=== PATIENT | female | born 1960 | race African-American/Black ===

== ENCOUNTER 2018-04-06 11:39 | Emergency (ER) | payer OTHER ==
[~2018-04-06] VITALS: Ht 172.7 cm; Wt 99.8 kg
--- NOTE | ~2018-04-06 | EKG ---
[address] [address] ELECTROCARDIOGRAM REPORT Name: ARCHANANATEALMITANahomi Comer Room #: DEP [facility]#: [id number] Admission: 04/06/18 Attend Phys: Discharge: 04/06/18 Date of : 62 Report #: [id number] THIS REPORT FOR: //name// [facility] ED Test Date: 2018-04-06 Test Time: 12:21:07 Pat Name: ROSANNA MAGAÑA Department: Room: Gender: F Trigonometry Tutor: SALOMÓN : 1960 Requested By: Filemon Cam Order Number: [id number] MD: Dayne Mckee Measurements Intervals [place] Rate: 62 P: 16 MD: 173 QRS: -13 QRSD: 102 T: 11 QT: 394 QTc: 400 Interpretive Statements Sinus rhythm Left ventricular hypertrophy Compared to ECG 01/06/2008 07:14:13 Left ventricular hypertrophy now present Sinus bradycardia no longer present Sinus arrhythmia no longer present ST (T wave) deviation no longer present Electronically Signed On 04-06-2018 17:03:19 CDT by Dayne Mckee [email or web address] <ELECTRONICALLY SIGNED> By: Dayne Mckee MD 04/06/18 1703 1221 1221 Dayne Mckee MD /EPI
[2018-04-06] MEDS ORDERED: LISINOPRIL-HCT1 EAC1 PO (11:47)
[2018-04-06] MEDS ORDERED: ATORVASTATIN CA40 MG PO (11:47)
[2018-04-06] MEDS ORDERED: COREG6.25 MG PO (11:47)
[2018-04-06] MEDS ORDERED: OXYCODONE HCL15 MG PO (11:48)
[2018-04-06 12:43] LABS: ABSOLUTE NEUTROPHILS 4.6 thou/uL (1.4-8.2); EOSINOPHILS 2.1 % (0.0-3.0); HEMATOCRIT 36.6 % (37.0-47.0); HEMOGLOBIN 11.6 gm/dL (12.0-15.0); LYMPHOCYTES 21.1 % (24.0-44.0); MCH 27.2 pg (26.0-34.0); MCHC 31.6 g/dL (28.0-37.0); MCV 86.1 fL (80.0-100.0); MONOCYTES 6.2 % (1.0-8.0); PLATELET COUNT 357 thou/uL (150-400); POLYS 69.6 % (36.0-66.0); RBC 4.25 mil/uL (4.20-5.00); RDW 16.9 % (10.5-14.5); WBC 6.6 thou/uL (4.0-11.0)
[2018-04-06 12:49] LABS: ANION GAP 7 mmol/L (7-16); BUN 5 mg/dL (7-18); CALCIUM 9.7 mg/dL (8.5-10.1); CHLORIDE 101 mmol/L (98-107); CO2 32 mmol/L (21-32); CREATININE 0.9 mg/dL (0.6-1.0); GLUCOSE 97 mg/dL (74-106); POTASSIUM 3.1 mmol/L (3.5-5.1); SODIUM 140 mmol/L (136-145)
[2018-04-06 12:57] LABS: TROPONIN-I <0.06 ng/mL (<0.06)
[2018-04-06] MEDS ORDERED: MOBIC15 MG PO (14:05)
[2018-04-06 14:25] VITALS: BP 141/77
== END 2018-04-06 14:25 | disposition home or self-care (01) ==
LOC: ER 11:39
PROVIDERS: Physician Assistant
DX: R09.1 Pleurisy (principal); M54.6 Pain in thoracic spine; I10 Essential (primary) hypertension; Z87.891 Personal history of nicotine dependence; Z96.653 Presence of artificial knee joint, bilateral

== ENCOUNTER 2021-07-26 11:45 | Inpatient (IN) | payer OTHER ==
[~2021-07-26] VITALS: Ht 172.7 cm; Wt 108.9 kg
[~2021-07-26 11:45] MED LIST: ATORVASTATIN CA40 MG PO; COREG6.25 MG PO; LISINOPRIL-HCT1 EAC1 PO; MOBIC15 MG PO; OXYCODONE HCL15 MG PO
[2021-07-26 14:13] LABS: ABSOLUTE NEUTROPHILS 9.7 thou/uL (1.4-8.2); BASOPHILS 0.4 % (0.0-2.0); EOSINOPHILS 0.4 % (0.0-3.0); HEMATOCRIT 38.5 % (37.0-47.0); HEMOGLOBIN 11.9 gm/dL (12.0-15.0); LYMPHOCYTES 8.3 % (24.0-44.0); MCH 25.4 pg (26.0-34.0); MCHC 30.9 g/dL (28.0-37.0); MCV 82.2 fL (80.0-100.0); MONOCYTES 4.6 % (1.0-8.0); PLATELET COUNT 262 thou/uL (150-400); POLYS 86.3 % (36.0-66.0); RBC 4.68 mil/uL (4.20-5.00); RDW 17.1 % (10.5-14.5); WBC 11.2 thou/uL (4.0-11.0)
[2021-07-26 14:25] LABS: CALCIUM 9.4 mg/dL (8.5-10.1); CREATININE 0.9 mg/dL (0.6-1.0); POTASSIUM 3.2 mmol/L (3.5-5.1)
[2021-07-26 14:32] LABS: ALBUMIN 3.5 g/dL (3.4-5.0); TOTAL BILIRUBIN 0.1 mg/dL (0.2-1.0); TOTAL PROTEIN 8.4 g/dL (6.4-8.2)
[2021-07-26] MEDS ORDERED: BACLOFEN 10MG T10 MG PO (14:34)
[2021-07-26] MEDS ORDERED: ROXICODONE15 MG PO (14:34)
[2021-07-26] MEDS ORDERED: MELOXICAM7.5 MG PO (14:34)
[2021-07-26] MEDS ORDERED: LIPITOR 40 MG T40 M1 PO (14:34)
[2021-07-26] MEDS ORDERED: MELOXICAM15 MG PO (14:35)
[2021-07-26] MEDS ORDERED: VAZALORE81 MG PO (14:36)
[2021-07-26 15:01] VITALS: BP 115/67
[2021-07-26 15:21] VITALS: BP 112/67
[2021-07-26 15:48] VITALS: BP 112/73
--- NOTE | 2021-07-26 17:01 | NUR ---
ASSUMED PT CARE FROM ED AT 1540. PT IS ALERT & ORIENTED X4. PT HAS IV SITE ON LFA SALINE LOCKED. PT IS ON ROOM AIR. PER DR BOURGEOIS PT WILL HAVE SURGERY TOMORROW AT 1700 AND WILL BE NPO AFTER MIDNIGHT. PLACED EXTERNAL CATH PUREWICK THIS AFTERNOON. FINISHED ADMISSION. WILL CONTINUE TO MONITOR PT. FOLLOW POC.
[2021-07-26 19:40] VITALS: BP 91/63
[2021-07-27] VITALS (7 sets, daily range): BP systolic 80–111; BP diastolic 41–62
[2021-07-27 06:12] LABS: MCH 26.2 pg (26.0-34.0); MCHC 31.3 g/dL (28.0-37.0); MCV 83.8 fL (80.0-100.0); RBC 3.7 mil/uL (4.20-5.00); RDW 17.1 % (10.5-14.5); WBC 5.7 thou/uL (4.0-11.0)
[2021-07-27 06:18] LABS: HEMOGLOBIN 9.7 gm/dL (12.0-15.0)
[2021-07-27 06:24] LABS: CALCIUM 8.4 mg/dL (8.5-10.1)
[2021-07-27 06:26] LABS: POTASSIUM 4.7 mmol/L (3.5-5.1)
[2021-07-27 06:30] LABS: CREATININE 2.2 mg/dL (0.6-1.0)
--- NOTE | 2021-07-27 06:45 | NUR ---
PT BEEN RESTING IN NO ACUTE DISTRESS.A/OX4.LEFT KNEE BRACE IN PLACE.ASSIST TO BSC.VSS,B/P BEEN SOFT,[employer] WAS NOTIFIED,N/O FOR IVF GIVEN.REPLACED POTASSIUM PER ORDERS.PAIN MEDSX1 FOR KNEE PAIN.CRITICAL LABS RESULT CALLED IN TO [employer]IVER.SEE THE ORDERS.NPO SINCE MIDNOC.PLANNED FOR SURGERY TODAY IN THE AFTERNOON.
--- NOTE | 2021-07-27 13:55 | NUR ---
PLACING PATIENT ON HOLD, GOING FOR SURGERY. WILL NEED NEW ORDERS POST-OP TO INITIATE OT EVAL.
--- NOTE | 2021-07-27 15:41 | NUR ---
met with patient who resides at home with her mother who has dementia. While patient in hosp she has a caregiver at home for her. Patient is on disability. she has back problems. She has HCBS 3 hours a day, 7 days a week. She plans to increase the time and will discuss with her caregiver. She has never rec home health in past. She has had bilateral knee sx in past. Patient has walker at home. All needs on one level at home. She plans to purchase a bed side commode. Her brother can assist with driving [place] [facility] plan sx. Therapy evals in process. Patient has medicare part A only and [place] medicaid secondary. If need for home health will need to inquire into coverage.
--- NOTE | 2021-07-27 20:30 | NUR ---
Pt. arrived to the unit from PACU accompanied by staff. She is drowsy and VSS. Dressing to right knee is dry and intact. Knee immobilizer is in place.
[2021-07-28 00:48] VITALS: BP 97/45
--- NOTE | 2021-07-28 06:15 | NUR ---
Pt. rested quietly during the night when checked on during frequent rounds. Ivp morphine given for left knee pain (see emar) with relief noted. No c/o nausea and tolerated a regular diet. Bed alarm is on.
[2021-07-28 08:00] VITALS: BP 114/75
[2021-07-28 09:00] VITALS: BP 114/71
--- NOTE | 2021-07-28 12:20 | NUR ---
5N consult for patient to determine if candidate for acute rehab. Discussed HH care with patient. She has H[facility] with [facility] Sp with [facility] office who does not have opening for home health care in her area. [facility] with no preference for [facility]
[2021-07-28 20:42] VITALS: BP 123/64
--- NOTE | 2021-07-29 03:43 | NUR ---
Pt. rested quietly at intervals during the night when checked on during frequent rounds. She was given pain meds for c/o pain in left leg (see emar) with some relief noted. Up to the bedsid comode with assistance of one. Left knee immobilizer in place. Bed alarm is on.
[2021-07-29 07:25] VITALS: BP 130/80
[2021-07-29 08:00] VITALS: BP 130/80
--- NOTE | 2021-07-29 16:19 | NUR ---
Patient reports she has arranged more home care for her mother. She wants to dc to acute rehab. 5N accepting. plan dc today.
[2021-07-29 18:37] VITALS: BP 130/80
[2021-07-30] MEDS ORDERED: ULTRA-LIGHT RO1 EACH (12:06)
== END 2021-07-29 18:21 | DRG 480 ==
LOC: ER 11:45 → 4S 15:13 → EROBS 15:13 → 4S 15:22
PROVIDERS: Physician Assistant; ADMIT Hospitalist; ATTEND Hospitalist
PROC: 2W3RX1Z Immobilization of Left Lower Leg using Splint (ICD-10-PCS; principal; 2021-07-26)
PROC: 0QSC04Z Reposition Left Lower Femur with Internal Fixation Device, Open Approach (ICD-10-PCS; 2021-07-27)
DX: S72.492A Other fracture of lower end of left femur, initial encounter for closed fracture (principal); R65.11 Systemic inflammatory response syndrome (SIRS) of non-infectious origin with acute organ dysfunction; M97.02XA Periprosthetic fracture around internal prosthetic left hip joint, initial encounter; N17.9 Acute kidney failure, unspecified; D62 Acute posthemorrhagic anemia; Z96.653 Presence of artificial knee joint, bilateral; G89.29 Other chronic pain; M54.9 Dorsalgia, unspecified; E66.01 Morbid (severe) obesity due to excess calories; I10 Essential (primary) hypertension; M19.90 Unspecified osteoarthritis, unspecified site; E78.5 Hyperlipidemia, unspecified; K59.00 Constipation, unspecified; Z20.822 Contact with and (suspected) exposure to COVID-19; Z28.21 Immunization not carried out because of patient refusal; W01.0XXA Fall on same level from slipping, tripping and stumbling without subsequent striking against object, initial encounter; Z87.891 Personal history of nicotine dependence; Z68.36 Body mass index [BMI] 36.0-36.9, adult; Z79.82 Long term (current) use of aspirin; Z79.899 Other long term (current) drug therapy; Y93.29 Activity, other involving ice and snow; Y92.098 Other place in other non-institutional residence as the place of occurrence of the external cause; Y99.8 Other external cause status
CPT/HCPCS: 10195; 50010; 50101; 50386; 50403; 51412; 56524; 56526; 56527; 56528; 57506; 57507; 57980; 59034; 59037; 59038; 59156; 62110; 62900; 70005

== ENCOUNTER 2021-07-29 16:11 | Inpatient (IN) | payer OTHER ==
[~2021-07-29] VITALS: Ht 172.7 cm; Wt 109.8 kg
[~2021-07-29 16:11] MED LIST changes: +BACLOFEN 10MG T10 MG PO; +LIPITOR 40 MG T40 M1 PO; +MELOXICAM15 MG PO; +MELOXICAM7.5 MG PO; +ROXICODONE15 MG PO; +VAZALORE81 MG PO
--- NOTE | 2021-07-29 18:30 | NUR ---
PT ARRIVED VIA BED TO ROOM. PT ALERT AND ORIENTED X4. PT HAS LEFT LEG IMMOBILIZER DUE TO A FX LEFT FEMUR FROM A FALL. PT HAS ICE PACK TO LEFT KNEE, PT HAS LEFT LEG ELEVATED UP ON A PILLOW. PT ON ROOM AIR. PT HAS CALL LIGHT IN REACH. PT REQUESTED ANOTHER PILLOW FOR HER BACK, PT HAS CHRONIC BACK PAIN. PT HAS BEEN REFUSING COREG STATED SHE HAS NOT TAKEN FOR 3 YEARS, PT ALSO REFUSING ACCUCHECKS DUE TO NOT BEING A DIABETIC.
[2021-07-29 19:56] VITALS: BP 127/65
--- NOTE | 2021-07-30 03:25 | NUR ---
ASSUMED CARE AT 1915 OF 07/29. PATIENT IS A&OX4, AND ABLE TO MAKE NEEDS KNOWN. ADMISSION ASSEMENT PERFORMED THIS SHIFT. PATIENT REPORTS PAIN IN LLE, DRESSING TO LLE IS WRAPPED WITH ANTWAN WRAP, WHICH REMAINS CDI. LEFT KNEE IS ALSO IN AN IMMOBILIZER. REMAINS NON-WEIGHT BEARING ON LLE. BLE EDEMA PRESENT, ENCOURAGED TO KEEP LOWER EXTREMITIES ELEVATED WHILE IN BED. MINIMAL ASSIST WITH TRANSFER TO [facility] TO VOID, USING GB AND WALKER. MOVEMENT AND WARMTH PRESENT IN LEFT FOOT AND TOES, AND PATIENT REPORTS PRESENCE OF SENSATION REMAINS INTACT WELL. PRN PAIN MEDICATION AND ICE PACK PROVIDED TO MANAGE PAIN IN LLE, WITH REPORTED EFFECTIVENESS. RIGHT PIV IS SALINE LOCKED, NO S/S OF INFECTION NOTED. PATIENT WAS ORIENTED TO THE UNIT AND ROOM, ADMISSION PACKET PROVIDED, CONSENT FORMS SIGNED. PATIENT EXPRESSED UNDERSTANDING OF INFORMATION PROVIDED. FALL PRECAUTIONS IN PLACE, CALL LIGHT WITHIN REACH. WILL CONTINUE TO MONITOR.
[2021-07-30 05:47] LABS: HEMATOCRIT 24.5 % (37.0-47.0); MCH 26.2 pg (26.0-34.0); MCV 84.4 fL (80.0-100.0); RBC 2.9 mil/uL (4.20-5.00); RDW 16.8 % (10.5-14.5); WBC 7.5 thou/uL (4.0-11.0)
[2021-07-30 06:02] LABS: HEMOGLOBIN 7.6 gm/dL (12.0-15.0)
[2021-07-30 06:23] LABS: CALCIUM 8.2 mg/dL (8.5-10.1); POTASSIUM 3.4 mmol/L (3.5-5.1)
[2021-07-30 06:26] LABS: CREATININE 0.8 mg/dL (0.6-1.0)
[2021-07-30 06:44] LABS: FOLIC ACID 14.9 ng/mL (8.6-58.9)
[2021-07-30 08:00] VITALS: BP 125/72
--- NOTE | 2021-07-30 09:17 | NUR ---
Pt is new admit to rehab s/p L femur fx with IM nailing on 07/27. No c/o sig weight changes or change in appetite [employer] CAREGIVER. Obese class II with BMI 36.7. She is on a regular diet with no c/o chewing/swallowing issues. Intakes have been good >75% at meals. Meds reviewed and include FeSO4, statin, laxative, HCTZ. Labs reviewed K3.4, Hgb 7.6, Vit D and A1c pending. No hx DMII. Plan is for ~1 week on rehab, then d/c home with HH. Presents low nutrition risk.
--- NOTE | 2021-07-30 09:30 | NUR ---
Chart review. Dx s/p left distal femur fx surgery. Unable to visit with taye, she is working with ot this morning. [employer] she lives at home with her mom, who she cares for related to her mom having dementia. She has assistance for her mom while she is in rehab. They live in a home, 1 step to enter, no stairs inside, all on one level. Has a walker from past knee surgery. HCBS 3hr per day x 7 days. Manage her own medication, and finances. Drives vehicle. ok for hh if needed and Beulah Jacobson following. Will cont following as needed.
[2021-07-30 09:49] VITALS: BP 125/72
[2021-07-30] MEDS ORDERED: ULTRA-LIGHT RO1 EACH (12:06)
--- NOTE | 2021-07-30 14:00 | NUR ---
ADV. DIR. CONSULT [phone] WAS COMPLETED BY THIS FORMING PRESS OPERATOR. SHE DID NOT EXPRESS A DESIRE TO DO ONE AT THIS TIME.
--- NOTE | 2021-07-30 19:47 | NUR ---
PATIENT ENCOURAGED TO DRINK TWO NECTAR-THICK LIQUID CONTAINERS THIS SHIFT. PATIENT IS INCREASINGLY ENCOURAGED TO EAT HER MEALS ON WHEELCHAIR WITH PILLOWS TO ENCOURAGE STRENGTH OF MUSCLES. PATIENT NOW WEARING SOFT CERVICAL COLLAR FOR ADDED SUPPORT FOR HER BACK, SHOULDER, AND ABDOMINAL MUSCLES. PATIENT COOPERTIVE WITH PT, OT, AND ST. DAUGHTER CALLED THIS SHIFT TO DISCUSS HER PROGRESS.
--- NOTE | 2021-07-30 20:01 | NUR ---
ASSUMED CARE OF PATIENT AT 0700. PATIENT ALERT AND ORIENTED X 4. PATIENT EXPERIENCES PAIN FROM SURGERY OF LEFT DISTAL FEMUR FRACTURE. PAIN RELIEVED BY OXYCODONE, EXTENDED RELEASE AND HYDROCODONE Q4. DISCONTINUATION OF COREG BUT CONTINUATION OF LISINOPRIL AND HYDROCHLORIZIDE. PATIENT AMBULATES VERY WELL TO BEDSIDE COMMODE AND BACK TO BED. PATIENT AMBULATED TO CHAIR WELL. PATIENT EXPERIENCED BOWEL MOVEMENTS THROUGH OUT THIS SHIFT.
[2021-07-30 21:04] VITALS: BP 131/73
--- NOTE | 2021-07-31 04:39 | NUR ---
ASSUMED CARE AT 1915 OF 07/30. PATIENT IS A&OX4. DENIES SHORTNESS OF BREATH. REPORTS PAIN IN LLE, WHICH IS MANAGED WITH PRN PAIN MEDICATION AND ICE PACK. MINIMAL ASSIST WITH TRANSFERS USING GB AND WALKER, LLE REMAINING NWB AND IMMOBILIZER IN PLACE OVER LEFT KNEE. FALL PRECAUTIONS IN PLACE, CALL LIGHT WITHIN REACH. WILL CONTINUE TO MONITOR.
[2021-07-31 07:08] LABS: GLYCOHEMOGLOBIN (HGB A1C) 5.5 % (4.8-5.6)
[2021-07-31 08:08] VITALS: BP 140/76
--- NOTE | 2021-07-31 14:55 | NUR ---
CONTACTED THE ORTHO OFFICE TO ASK ABOUT DRESSING CHANGES AND WHAT NEEDED TO BE DONE. PER LV, THE MD LIKES THEM TO STAY UNTOUCHED FOR TWO WEEKS OR UNTIL THE FOLLOW UP APPOINTMENT. PATIENTS' LEFT LEG REMAINS WRAPPED WITH AN ANTWAN WRAP AND THE SMALL INCISION TO THE THIGH HAD NEW XEROFORM AND COVERED WITH FOAM DRESSING THIS MORNING AFTER SHOWER. EVERYTHING IS CDI. WCTM
--- NOTE | 2021-07-31 16:48 | NUR ---
ASSUMED CARE OF PATIENT AT 0700. PATIENT A&O, ON RA, AND UP IN ROOM AD GIO. LEFT LEG REMAINS ANTWAN WRAP[PED AND IN AN IMMOBILIZER. SPOKE WITH THE ORTHO OFFICE AND NO DRESSING CHANGES TO BE DONE FOR AT LEAST TWO WEEKS OR FIRST FOLLOW UP APPOINTMENT. SMALL INCISION ON LEFT THIGHT CHANGED AFTER SHOWER WITH XEROFORM AND FOAM DRESSING PUT INTO PLACE TO COVER THREE SUTURES THAT REMAIN IN PLACE. HYDROCODONE INCREASED TO 10/325 AND PATIENT SEEMS TO BE GETTING BETTER PAIN RELIEF WITH THE HIGHER DOSE, STATING "ITS JUST A DULL PAIN NOW." PATIENT PROGRESSING TOWARD POC.
[2021-07-31 17:00] VITALS: BP 143/84
--- NOTE | 2021-08-01 02:19 | NUR ---
assumed care approx 1900 evening 07/31. pt alert and oriented x4, appropriate and cooperative. pt with yang wrap and immobilizer to left leg elevated on pillow. pt up to bathoom toe touch wt bearing with walker and 1 assist. pt appears to be sleeping soundly. bed alarm on and call light in reach. will continue to monitor.
[2021-08-01 06:20] VITALS: BP 119/75
[2021-08-01 08:00] VITALS: BP 106/62
--- NOTE | 2021-08-01 16:01 | NUR ---
ASSUMED CARE OF PT AT 0700. PT IS A&OX4. CONTINENT OF B&B. LEFT LEG IS ANTWAN WRAPPED AND IMMOBILIZER IN PLACE. PT IS MINIMAL ASSIST WITH WALKER, SHE HOPS ON RIGHT LEG WITH NO WEIGHTBEARING ON LEFT LEG.
[2021-08-01 19:13] VITALS: BP 119/63
--- NOTE | 2021-08-02 03:30 | NUR ---
assumed care approx 1900 evening 08/01. pt alert and oriented x4, pleasant and cooperative. pt assist into w/c and into bathroom at hs to void. immobilizer on left leg intact. pt appears to be sleeping soundly. bed alarm on and call light in reach. will continue to monitor.
[2021-08-02 06:22] VITALS: BP 140/82
[2021-08-02 07:36] VITALS: BP 142/87
--- NOTE | 2021-08-02 17:55 | NUR ---
ASSUMED CARE OF PATIENT AT 0700. PATIENT IS A&OX4. PATIENT IS CONTINENT OF BOWEL AND BLADDER. PATIENT IS WEARING ANTWAN WRAP AND IMMOBILIZER ON LEFT LEG. PATIENT IS NON-WEIGHT BEARING ON LEFT LEG. PATIENT HOPS WITH WALKER TO BATHROOM. PATIENT HAS HAD SEVERAL VISITORS TODAY.
[2021-08-02 19:40] VITALS: BP 116/66
--- NOTE | 2021-08-03 03:09 | NUR ---
ASSUMED CARE AT 1935 OF 08/02. PATIENT IS A&OX4, DENIE SHORTNESS OF BREATH. REPORTS PAIN IN LLE, WHICH IS MANAGED WITH PRN PAIN MEDICATION AND ICE PACK. DRESSING TO LLE IS COVERED IN ACEWRAP, WHICH REMAINS INTACT. PATIENT IS MINIMAL TO STAND BY ASSIST WITH TRANSFER TO TOILET USING GB AND WALKER, ENSURING LLE REMAINS NWB. FALL PRECAUTIONS IN PLACE, CALL LIGHT WITHIN REACH. WILL CONTINUE TO MONITOR.
[2021-08-03 08:00] VITALS: BP 126/63
--- NOTE | 2021-08-03 15:10 | NUR ---
RN CALLED ORTHO DOCTOR TO ASK ABOUT PTS LEG DRESSING CHANGE. ORTHO DOCTOR OFFICE CALLED RN BACK AND STATED THAT DRESSING COULD BE CHANGED NEEDED AND A LIGHT DRESSING PLACED ON TO REPLACE IT.
--- NOTE | 2021-08-03 15:19 | NUR ---
THIS NURSE ASSUMED CARE OF THIS PATIENT AT 0700 THIS SHIFT. PATIENT AMBULATING WELL AND CONSISTENTLY TO AND FROM BATHROOM TO TOILET. PAIN MANAGEMENT BEING CONTROLLED BY HYDROOXYCODONE Q4 AND OXYCOTIN EXTENDED-RELEASE. PATIENT BEING VISITED BY FAMILY THIS AFTERNOON. PATIENT IS IN [employer]IRITS THROUGHOUT SHIFT. PATIENT EXPRESSES BEING COMMITTED TO CONTINUING THERAPIES FOR HEALTHY LIFESTYLE.
[2021-08-03 19:22] VITALS: BP 113/61
--- NOTE | 2021-08-04 02:29 | NUR ---
ASSUMED CARE AT 1915 OF 08/03. PATIENT IS A&OX4, ABLE TO MAKE NEEDS KNOWN. MINIMAL ASSIST WITH TRANSFERS USING GB AND WALKER. PATIENT WAS ABLE TO PERFORM ADLS AT HS WITH SUPERVISIION. REPORTS MILD PAIN IN LLE, WHICH IS MANAGED WITH PRN PAIN MEDICATION AND ICE PACK. PROVIDED WITH HS SNACKS PER PATIENT REQUEST. FALL PRECAUTIONS IN PLACE, CALL LIGHT WITHIN REACH. WILL CONTINUE TO MONITOR.
[2021-08-04 06:19] LABS: ABSOLUTE NEUTROPHILS 4.6 thou/uL (1.4-8.2); BASOPHILS 0.2 % (0.0-2.0); EOSINOPHILS 3.3 % (0.0-3.0); HEMATOCRIT 23.4 % (37.0-47.0); HEMOGLOBIN 7.3 gm/dL (12.0-15.0); LYMPHOCYTES 19.1 % (24.0-44.0); MCH 25.8 pg (26.0-34.0); MCHC 31.4 g/dL (28.0-37.0); MCV 82.4 fL (80.0-100.0); MONOCYTES 11.1 % (1.0-8.0); PLATELET COUNT 288 thou/uL (150-400); POLYS 66.3 % (36.0-66.0); RBC 2.84 mil/uL (4.20-5.00); RDW 16.6 % (10.5-14.5)
[2021-08-04 06:53] LABS: CALCIUM 8.5 mg/dL (8.5-10.1); CREATININE 0.7 mg/dL (0.6-1.0); MAGNESIUM 2.1 mg/dL (1.8-2.4); POTASSIUM 3.4 mmol/L (3.5-5.1)
[2021-08-04 08:00] VITALS: BP 108/71
--- NOTE | 2021-08-04 11:00 | NUR ---
CM visited with taye about hh, [facility]. Ok for referral to be sent anywhere for wheelchair, who ever has home will be fine per taye. will cont following as needed for dc needs.
[2021-08-04 11:44] VITALS: BP 108/71
--- NOTE | 2021-08-04 19:32 | NUR ---
THIS NURSE ASSUMED CARE FOR THIS PATIENT AT 0700. PATIENT AOX4. PATIENT IS PLEASANT AND COOPERATIVE. PATIENT IS ON RA AND AMBULATES WELL WITH HOP AND WALKER TO TOILET. PAIN MANAGED WELL WITH OXY ER AND HYDROCODONE Q4. PATIENT ENJOYS REGULAR DIET.
[2021-08-04 21:40] VITALS: BP 123/70
--- NOTE | 2021-08-05 00:05 | NUR ---
PT ALERT AND ORIENTED X 4. UP TO BR WITH ASSIST X 1. NWB LLE. LLE IMMOBILIZER ON. ANTWAN WRAP C/D/I TO LEFT LE. DRESSING TO LEFT UPPER THIGH C/D/I. PT C/O PAIN IN LLE. HYDROCODONE GIVEN Q4H PER PT REQUEST. VERBALIZES ADEQUATE PAIN RELIEF WITH MEDS. BED ALARM ON FOR SAFETY. PT AWAKE AT THIS TIME.
[2021-08-05 05:28] VITALS: BP 142/79
[2021-08-05 07:20] VITALS: BP 141/85
--- NOTE | 2021-08-05 10:12 | NUR ---
emil martinez will deliver her wheelchair for her dc on tuesday today.
--- NOTE | 2021-08-05 13:36 | NUR ---
Nutrition followup: pt continues on rehab unit S/P left distal femur fracture, S/P IM nail 07/27. Stable weights. Eating well, 50-100% of meals on regular diet. Vitamin D 16.7, supplementation started. Also on B12, folic acid and ferrous sulfate. BM 08/04. Plan D/C 08/07. Low nutrition risk.
--- NOTE | 2021-08-05 15:57 | NUR ---
Pt's w/c for home use was delievered to her room today per [place]. All parties anticipating dc home with Beulah TADEO Tuesday.
--- NOTE | 2021-08-05 17:31 | NUR ---
Patient is pleasantly, using the walker hopping with non weight bearing on the left leg. pain med given prn for pain. Patient can go to bathroom independently, and sleep on the real bed tonight. Patient had a BM today, wash up herself and appetite is good. Call light within reach, will continous monitoring.
--- NOTE | 2021-08-06 02:52 | NUR ---
ASSUMED CARE AT 1915 OF 08/05. PATIENT IS A&OX4. DENIES SHORTNESS OF BREATH. REPORTS PAIN LLE, WHICH IS MANAGED WITH PRN PAIN MEDICATION AND ICE PACK. REMAINS NWB ON LLE, DRESSING AND ANTWAN WRAP OVER LLE REMAINS INTACT, AND IMMOBILIZER IS IN PLACE. PATIENT IS MODIFIED INDEPENDENT IN ROOM, AND IS TRANSFERING FROM BED USING WALKER TO HOP TO W/C, AND WHEELS HERSELF INTO THE BATHROOM TO VOID. PATIENT IS REMINDED THAT AT ANY POINT IS SHE FEELS UNSAFE TO TRASFER HERSELF TO CALL FOR ASSISTANCE. PATIENT EXPRESSES COMPREHENSSION, AND STATES SHE WANTS TO REMAIN SAFE AND WILL CALL WHEN SHE NEEDS ASSISTANCE. PATIENT IS SLEEPING IN APARTMENT BED, APPEARS TO BE SLEEPING ON HOURLY ROUNDS. FALL PRECAUTION IN PLACE, CALL LIGHT WITHIN REACH. WILL CONTINUE TO MONITOR.
[2021-08-06 07:00] VITALS: BP 112/67
--- NOTE | 2021-08-06 12:38 | NUR ---
Team meeting, recommendation that she is changed to MOD I in the room . Beulah reinoso ( pt, ot, nursing). Wheelchair from [facility] delivered yesterday. Follow up with orthopedics. dc 08/07/21.
[2021-08-06] MEDS ORDERED: VITAMIN D325 MC2 PO (13:47)
[2021-08-06] MEDS ORDERED: FOLIC ACID0.4 MG PO (13:47)
[2021-08-06] MEDS ORDERED: VITAMIN B-12500 MCG PO (13:47)
[2021-08-06] MEDS ORDERED: IRON325 PO (13:47)
[2021-08-06 15:18] VITALS: BP 108/71
--- NOTE | 2021-08-06 19:29 | NUR ---
ASSUMED CARE OF PT AT 0700. PT A&OX4. MODIFIED INDEPENDENT. CONTINENT OF B&B. HAD SEVERAL FAMILY VISITORS TODAY. READY TO GO HOME TOMORROW.
[2021-08-06 22:22] VITALS: BP 125/67
--- NOTE | 2021-08-06 23:44 | NUR ---
PT ALERT AND ORIENTED X 4. MODIFIED INDEPENDENT IN ROOM WITH WALKER. LEFT LEG IMMOBILIZER ON. DRESSING INTACT TO LLE. PT C/O PAIN IN HER LLE. HYDROCODONE GIVEN ORDERED. PT SLEEPING IN REGULAR BED IN APARTMENT. PT CHECKED ON HOURLY ROUNDS.
[2021-08-07 07:27] VITALS: BP 135/80
[2021-08-07 08:15] VITALS: BP 135/80
[2021-08-07] MEDS ORDERED: IRON325 PO (09:38)
[2021-08-07] MEDS ORDERED: VITAMIN D325 MC2 PO (09:38)
[2021-08-07] MEDS ORDERED: VAZALORE81 MG PO (09:38)
[2021-08-07] MEDS ORDERED: VITAMIN B-12500 MCG PO (09:38)
[2021-08-07] MEDS ORDERED: FOLIC ACID0.4 MG PO (09:38)
[2021-08-07] MEDS ORDERED: LIPITOR40 MG PO (09:38)
[2021-08-07] MEDS ORDERED: COLACE100 MG PO (09:39)
[2021-08-07] MEDS ORDERED: TRAZODONE HCL50 MG PO (11:32)
--- NOTE | 2021-08-07 13:37 | NUR ---
ASSUMED CARE OF PT AT 0700. PT A&OX4. PT IS EXCITED FOR D/C TODAY AT 1430. DISCHARGE PAPER GAVE TO PT AND SIGNED COPY ON CHART AROUND 10AM.
== END 2021-08-07 15:20 | disposition home health service (06) | DRG 534 ==
PROVIDERS: Nurse Practitioner; Nurse Practitioner Family; ADMIT Physical Medicine & Rehabilitation; ATTEND Physical Medicine & Rehabilitation
DX: S72.402A Unspecified fracture of lower end of left femur, initial encounter for closed fracture (principal); M97.12XA Periprosthetic fracture around internal prosthetic left knee joint, initial encounter; D62 Acute posthemorrhagic anemia; N17.9 Acute kidney failure, unspecified; G89.29 Other chronic pain; M54.9 Dorsalgia, unspecified; M19.90 Unspecified osteoarthritis, unspecified site; E66.9 Obesity, unspecified; E55.9 Vitamin D deficiency, unspecified; E78.5 Hyperlipidemia, unspecified; I10 Essential (primary) hypertension; K59.00 Constipation, unspecified; Z96.652 Presence of left artificial knee joint; W18.30XA Fall on same level, unspecified, initial encounter; Y93.89 Activity, other specified; Y99.8 Other external cause status; Y92.009 Unspecified place in unspecified non-institutional (private) residence as the place of occurrence of the external cause; Z68.36 Body mass index [BMI] 36.0-36.9, adult; Z82.0 Family history of epilepsy and other diseases of the nervous system
CPT/HCPCS: 10112